=== PATIENT | female | born 1970 | race Two or more races ===

== ENCOUNTER 2023-07-16 21:02 | Inpatient (IN) | payer OTHER ==
[~2023-07-16] VITALS: Ht 162.6 cm; Wt 68.0 kg
[2023-07-16] MEDS ORDERED: ZESTRIL5 MG PO (21:46)
[2023-07-16 22:16] LABS: HEMATOCRIT 36.7 % (36.0-45.00); HEMOGLOBIN 12.4 g/dL (12.0-15.00); MEAN CELL VOLUME 90.6 fL (80.00-100.00); MEAN CORPUSCULAR HEMOGLOBIN 30.5 pg (27.00-32.0); MEAN CORPUSCULAR HGB CONC 33.7 g/dl (32.0-36.0); PLATELET COUNT 296 K/uL (150-450); RED BLOOD COUNT 4.06 M/uL (4.00-6.00)
[2023-07-16 22:41] LABS: INR 1.09; PARTIAL THROMBOPLASTIN TIME 23.5 SECONDS (22.0-34.0); PROTHROMBIN TIME 11.4 SECONDS (9.0-11.5)
[2023-07-16 22:42] LABS: CALCIUM 9.8 mg/dL (8.5-10.1); CREATININE SERUM 2.32 mg/dL (0.55-1.02); GFR 21.88; POTASSIUM 3.22 mEq/L (3.5-5.1)
[2023-07-17 01:24] LABS: MAGNESIUM 1.8 mg/dL (1.8-2.4); PHOSPHOROUS 2.1 mg/dL (2.5-4.9)
[2023-07-17 11:41] LABS: PH,URINE 5.5 (5.0-8.0); URINE APPEARANCE Cloudy; URINE BILIRRUBIN Negative (NEGATIVE); URINE BLOOD Negative; URINE COLOR Dark Yellow; URINE GLUCOSE Negative (NEGATIVE); URINE LEUKOCYTE Negative; URINE NITRATE Negative; URINE PROTEIN 30 (NEGATIVE); URINE UROBILINOGEN 0.2 E.U./dl
[2023-07-17 11:46] LABS: URINE EPITHELIAL CELLS 57.5 uL (0.0-38.8); URINE RBC 5.1 uL (0.0-20.8)
[2023-07-17 12:17] LABS: URINE CRYSTALS FEW /HPF
[2023-07-18 06:46] LABS: HEMATOCRIT 30.8 % (36.0-45.00); HEMOGLOBIN 10.5 g/dL (12.0-15.00); MEAN CELL VOLUME 89.4 fL (80.00-100.00); MEAN CORPUSCULAR HEMOGLOBIN 30.4 pg (27.00-32.0); PLATELET COUNT 219 K/uL (150-450); RED BLOOD COUNT 3.44 M/uL (4.00-6.00); RED CELL DISTRIBUTION WIDTH 14.4 % (11.5-14.5)
[2023-07-18 06:58] LABS: BILIRUBIN TOTAL 0.66 mg/dL (0.3-1.2); CALCIUM 7.7 mg/dL (8.5-10.1); CREATININE SERUM 0.81 mg/dL (0.55-1.02); GFR 73.68; GLOBULINA 3.8 G/DL (2.4-3.5); POTASSIUM 3.06 mEq/L (3.5-5.1); TOTAL PROTEIN 6.8 gm/dL (6.4-8.2)
[2023-07-19 09:03] LABS: ALBUMIN 2.9 gm/dL (3.4-5.0); BILIRUBIN TOTAL 0.43 mg/dL (0.3-1.2); CALCIUM 8.2 mg/dL (8.5-10.1); CREATININE SERUM 0.6 mg/dL (0.55-1.02); GFR 104.18; GLOBULINA 3.1 G/DL (2.4-3.5); POTASSIUM 3.55 mEq/L (3.5-5.1)
== END 2023-07-19 20:07 | disposition home or self-care (01) | DRG 682 ==
LOC: ER 21:03 → ICU-2 07-17 00:13 → MEDJ 07-18 21:37
PROVIDERS: General Practice; Internal Medicine; ADMIT Specialist; ATTEND Specialist
PROC: BW21ZZZ Computerized Tomography (CT Scan) of Abdomen and Pelvis (ICD-10-PCS; principal; 2023-07-17)
PROC: BT43ZZZ Ultrasonography of Bilateral Kidneys (ICD-10-PCS; 2023-07-17)
PROC: B246ZZZ Ultrasonography of Right and Left Heart (ICD-10-PCS; 2023-07-17)
PROC: 4A12X4Z Monitoring of Cardiac Electrical Activity, External Approach (ICD-10-PCS; 2023-07-17)
PROC: 3E0F7SF Introduction of Other Gas into Respiratory Tract, Via Natural or Artificial Opening (ICD-10-PCS; 2023-07-17)
PROC: 02HV33Z Insertion of Infusion Device into Superior Vena Cava, Percutaneous Approach (ICD-10-PCS; 2023-07-18)
DX: N17.9 Acute kidney failure, unspecified (principal); R57.1 Hypovolemic shock; E23.2 Diabetes insipidus; E86.0 Dehydration; A08.4 Viral intestinal infection, unspecified; A05.9 Bacterial foodborne intoxication, unspecified; I95.89 Other hypotension; I12.9 Hypertensive chronic kidney disease with stage 1 through stage 4 chronic kidney disease, or unspecified chronic kidney disease; N18.9 Chronic kidney disease, unspecified